=== PATIENT | male | born 1990 | race African-American/Black ===

== ENCOUNTER 2024-08-16 17:07 | Emergency (ER) | payer OTHER ==
[2024-08-16 17:18] VITALS: BP 113/68; PULSE 72; RESP 20; TEMP 98.5; BMI 29.7
[2024-08-16] MEDS ORDERED: DIPHTH,PERTUSS(ACELL),TET 0.5 ML DISP.SYRIN IM ONE (18:14)
[2024-08-16] MEDS ORDERED: ACETAMINOPHEN 500 MG TABLET (FP) ONE (18:14)
[2024-08-16] MEDS: DIPHTH,PERTUSS(ACELL),TET 0.5 ML DISP.SYRIN IM ONE (18:21)
[2024-08-16] MEDS: ACETAMINOPHEN 500 MG TABLET (FP) PO ONE (18:22)
[2024-08-16 20:33] LABS: HIV INTERPRETATION NEGATIVE (NEGATIVE)
== END 2024-08-16 20:21 | disposition home or self-care (01) ==
LOC: JERFT 17:07
PROC: 3E0234Z Introduction of Serum, Toxoid and Vaccine into Muscle, Percutaneous Approach (ICD-10-PCS; principal; 2024-08-16)
DX: S81.812A Laceration without foreign body, left lower leg, initial encounter (principal); W26.8XXA Contact with other sharp object(s), not elsewhere classified, initial encounter; Y99.0 Civilian activity done for income or pay; Z23 Encounter for immunization
CPT/HCPCS: 36415; 73590-TC-LT-FY; 86803; 87389; 90715; 99284-25